=== PATIENT | male | born 1950 | race Caucasian/White ===

== ENCOUNTER 2020-03-06 09:52 | Inpatient (IN) | payer OTHER, MEDICARE ==
[2020-03-06] MEDS ORDERED: ACETAMINOPHEN TAB 325 MG TAB PO PRN (12:17)
[2020-03-06] MEDS ORDERED: MAGNESIUM HYDROXIDE 2,400 MG/10 ML CUP PO PRN (12:17)
[2020-03-06] MEDS ORDERED: NALOXONE 0.4 MG/ML 1 ML VIAL IV PRN (12:17)
[2020-03-06 12:58] LABS: ALT 31 U/L (4-49); AST 29 U/L (17-59); African American GFR (CKD) >90 (>60 ml/min/1.73 sqM); Albumin 3.9 g/dL (3.5-5.0); Alkaline Phosphatase 55 U/L (38-126); Blood Urea Nitrogen 23 mg/dL (9-20); Calcium 9.2 mg/dL (8.4-10.2); Chloride 85 mmol/L (98-107); Glucose 136 mg/dL (74-99); Magnesium 2.2 mg/dL (1.6-2.3); Non-African American GFR(CKD) >90 (>60 ml/min/1.73 sqM); Potassium 4.5 mmol/L (3.5-5.1); Sodium 132 mmol/L (137-145); Total Bilirubin 0.8 mg/dL (0.2-1.3); Total Protein 6.5 g/dL (6.3-8.2)
[2020-03-06 13:04] LABS: Anion Gap 2 mmol/L
[2020-03-06 13:06] LABS: Basophils % (A) 0 %; Eosinophils % (A) 0 %; HGB 15.5 gm/dL (13.0-17.5); Lymphocytes # (A) 0.6 k/uL (1.0-4.8); Lymphocytes % (A) 6 %; MCH 29.6 pg (25.0-35.0); MCV 95.4 fL (80.0-100.0); Mean Platelet Volume 7.3; Monocytes # (A) 0.7 k/uL (0-1.0); Monocytes % (A) 7 %; Neutrophils # (A) 8.4 k/uL (1.3-7.7); Neutrophils % (A) 86 %; Platelet Count 234 k/uL (150-450); RBC 5.25 m/uL (4.30-5.90); RDW 12.4 % (11.5-15.5); WBC 9.8 k/uL (3.8-10.6)
--- NOTE | 2020-03-06 13:10 | XR ---
EXAMINATION TYPE: XR chest 1V portable DATE OF EXAM: 03/06/2020 Comparison: None Clinical History: 69-year-old male SOB Findings: Leftward patient rotation alters normal cardiomediastinal contours. There is a curvilinear density pr ojecting over the left upper lung, possible external artifact or the margin of a bulla. This should b e correlated clinically. Some mild patchy retrocardiac density. Some volume loss at the left base. A trace left effusion is difficult to exclude. Impression: 1. A curvilinear density projecting at the left upper lung could represent external artifact or the m argin of a prominent bulla. 2. Retrocardiac and left basilar density, possible trace effusion with adjacent atelectasis and/or in filtrate.
[2020-03-06 13:11] LABS: Carbon Dioxide 45 mmol/L (22-30)
[2020-03-06] MEDS: AZITHROMYCIN 500 MG TAB PO SCH (13:40)
--- NOTE | 2020-03-06 13:45 | P.HPIM ---
History of Present Illness H&P Date: 03/06/20 Chief Complaint: Worsening shortness of breath and dyspnea This is a 69-year-old male with past medical history significant for severe COPD who was transferred from [facility] worsening dyspnea and hypercapnia. Patient was dyspneic upon my evaluation was only able to provide minimal history. He said that his shortness of breath is chronic and is been ongoing for over a year. With the past couple of days he is feeling more short of breath and was unable to ambulate. He denies any fevers or chills. No cough. No flulike symptoms. No recent contact. He was evaluated at [facility] and admitted for COPD exacerbation. This morning he appears to be more confused and blood gas was drawn showing a pH of 7.35 and PaCO2 of 84 patient was transferred to our hospital for escalation of care. Patient informed me that he would like to be a full code. He denies having any other medical problems. He denies taking any medications at home. He is not on oxygen at home. Review of Systems Review of system: 14 points review of systems were obtained and were negative except to what were mentioned in the HPI. Medications and Allergies Home Medications Medication Instructions Recorded Confirmed Type Albuterol Nebulized [Ventolin 2.5 mg INHALATION RT-Q4H PRN 03/06/20 03/06/20 History Nebulized] Albuterol Sulfate [Ventolin HFA] 2 puff PO Q4-6H PRN 03/06/20 03/06/20 History Aspirin EC [Ecotrin Low Dose] 81 mg PO DAILY 03/06/20 03/06/20 History Azithromycin [Zithromax] See Taper PO DAILY 03/06/20 03/06/20 History Beclomethasone Dipropionate [Qvar 1 inhalation PO RT-BID 03/06/20 03/06/20 History 40 mcg Redihaler] Fluticasone Nasal [place] [Flonase 1 spray NASAL DAILY PRN 03/06/20 03/06/20 History Nasal [place]] Multivitamins, Thera [Multivitamin 1 tab PO DAILY 03/06/20 03/06/20 History (formulary)] predniSONE [Deltasone] 40 mg PO DAILY 03/06/20 03/06/20 History Allergies Allergy/AdvReac Type Severity Reaction Status Date / Time No Known Allergies Allergy Verified 03/06/20 13:02 Physical Exam Vitals: Intake and Output 03/05/20 03/06/20 03/06/20 22:59 06:59 14:59 Other: Weight 74.642 kg General: The patient is awake and alert, in no distress Eye: there is normal conjunctiva bilaterally. Neck: The neck is supple, there is no JVD. Cardiovascular: Normal S1-S2, no S3-S4, no murmurs. Respiratory: Lungs are diminished with mild end expiratory wheezing Gastrointestinal: Abdomen is soft, nontender Musculoskeletal: There is no pedal edema. Neurological:. Speech is normal. Skin: Skin is warm and dry Results CBC & Chem 7: 03/06/20 12:36 03/06/20 12:36 Labs: Abnormal Lab Results - Last 24 Hours (Table) 03/06/20 03/06/20 Range/Units 12:36 12:36 Neutrophils # 8.4 H (1.3-7.7) k/uL Lymphocytes # 0.6 L (1.0-4.8) k/uL Sodium 132 L (137-145) mmol/L Chloride 85 L (98-107) mmol/L Carbon Dioxide 45 H* (22-30) mmol/L BUN 23 H (9-20) mg/dL Creatinine 0.61 L (0.66-1.25) mg/dL Glucose 136 H (74-99) mg/dL Assessment and Plan Assessment: 1. Acute COPD exacerbation: Continue Solu-Medrol 40 mg every 8 hours. DuoNeb's every 4 hours. Inhaled steroids twice daily. 2. Acute on chronic hypercapnic respiratory failure: Will start BiPAP at this time. Also pulmonology for further evaluation. 3. Acute hypoxic respiratory failure: Target O2 sat 88-92% 4. Left lower lobe density, may represent pneumonia versus atelectasis. We will continue antibiotic with IV ceftriaxone 1 g daily and azithromycin 500 mg daily. Obtain pro-calcitonin 5. Hyponatremia: Start IV fluid hydration with normal saline at 50 mg per hour 6. DVT prophylaxis with subcu Lovenox Today, I reviewed his medication list and lab work results. COVID-19 PCR negative. Other test sent from outside hospital pending. Repeat lab work in the morning.
[2020-03-06] MEDS: IPRATROPIUM-ALBUTEROL 3 ML NEB INHALATION SCH ×2 (16:16→19:53)
[2020-03-06] MEDS: methylPREDNISolone SOD SUCCI 40 MG/ML 1 ML VIAL IV SCH ×2 (16:35→23:08)
[2020-03-06 16:58] LABS: Glucose,Whole Blood 117 mg/dL (75-99)
[2020-03-06] MEDS: INSULIN ASPART (NovoLOG) 100 UNIT/ML VIAL SQ SCH ×2 (17:07→22:14)
--- NOTE | 2020-03-06 17:14 | P.CNPUL ---
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 Patient denied any fever, chills, denied any cough, or phlegm production, no sick contacts, no body aches, no nausea vomiting or diarrhea. Apparently he has been increasingly short of breath over the past couple of days and was unable to ambulate. He was evaluated a [facility] and he was being treated there for acute COPD exacerbation. Patient was found to be more confused and a blood gas was obtained showing PaCO2 of 84% and pH of 7.35. Chest x-ray was obtained once he arrived to [facility] showing curvilinear density projecting over the left upper lung with the possibility of external artifact or a margin of the [place], mild patchy retrocardiac density with some volume loss at the left base and a trace left pleural effusion was difficult to exclude. Patient was started on antibiotics in the form of azithromycin and Rocephin, Procrit Calcitrol level is pending, patient was placed on BiPAP for acute on chronic hypercapnic respiratory failure. His lab work was reviewed showing normal white count of 9.8, hemoglobin of 15.5, neutrophil level of 8.4, lymphopenia of 0.6, sodium 132, patient is receiving gentle IV hydration and plan and was sitting at a 50, chloride is 85, CO2 is 45, B1 is 23, creatinine is 0.61, LFTs were unremarkable, Covid 19 test was negative. Patient is on nebulized bronchodilators, and IV steroids. His BiPAP pressure is 15/5 with FiO2 of 40%, with a target pulse ox of 88-91% Review of Systems All systems: negative Constitutional: Denies chills, Denies fever Eyes: denies blurred vision, denies pain Ears, nose, mouth and throat: Denies headache, Denies sore throat Cardiovascular: Denies chest pain, Denies shortness of breath Respiratory: Reports dyspnea, Denies cough Gastrointestinal: Denies abdominal pain, Denies diarrhea, Denies nausea, Denies vomiting Musculoskeletal: Denies myalgias Integumentary: Denies pruritus, Denies rash Neurological: Reports change in mentation, Reports confusion, Denies numbness, Denies weakness Psychiatric: Denies anxiety, Denies depression Endocrine: Denies fatigue, Denies weight change Past Medical History - Past Family History Father Family Medical History: Coronary Artery Disease (CAD) Additional Family Medical History / Comment(s): of heart disease. Mother Family Medical History: CVA/TIA Additional Family Medical History / Comment(s): Lived into her 90's, now . Brother(s) Family Medical History: Coronary Artery Disease (CAD) Additional Family Medical History / Comment(s): of heart disease. Medications and Allergies Home Medications Medication Instructions Recorded Confirmed Type Albuterol Nebulized [Ventolin 2.5 mg INHALATION RT-Q4H PRN 03/06/20 03/06/20 History Nebulized] Albuterol Sulfate [Ventolin HFA] 2 puff PO Q4-6H PRN 03/06/20 03/06/20 History Aspirin EC [Ecotrin Low Dose] 81 mg PO DAILY 03/06/20 03/06/20 History Azithromycin [Zithromax] See Taper PO DAILY 03/06/20 03/06/20 History Beclomethasone Dipropionate [Qvar 1 inhalation PO RT-BID 03/06/20 03/06/20 History 40 mcg Redihaler] Fluticasone Nasal [place] [Flonase 1 spray NASAL DAILY PRN 03/06/20 03/06/20 History Nasal [place]] Multivitamins, Thera [Multivitamin 1 tab PO DAILY 03/06/20 03/06/20 History (formulary)] predniSONE [Deltasone] 40 mg PO DAILY 03/06/20 03/06/20 History Allergies Allergy/AdvReac Type Severity Reaction Status Date / Time No Known Allergies Allergy Verified 03/06/20 13:02 Physical Exam Vitals: Intake and Output 03/05/20 03/06/20 03/06/20 22:59 06:59 14:59 Other: Weight 74.642 kg GENERAL EXAM: Awake and alert, 69 -year-old male, on BiPAP support currently with pressures of 15/5 and FiO2 of 40% comfortable in no apparent distress. HEAD: Normocephalic/atraumatic. EYES: Normal reaction of pupils, equal size. Conjunctiva pink, sclera white. NOSE: Clear with pink turbinates. THROAT: No erythema or exudates. NECK: No masses, no JVD, no thyroid enlargement, no adenopathy. CHEST: No chest wall deformity. Symmetrical expansion. LUNGS: Equal air entry with diminished breath sounds and diffuse end expiratory wheezing CVS: Regular rate and rhythm, normal S1 and S2, no gallops, no murmurs, no rubs ABDOMEN: Soft, nontender. No hepatosplenomegaly, normal bowel sounds, no guarding or rigidity. EXTREMITIES: No clubbing, no edema, no cyanosis, 2+ pulses and upper and lower extremities. MUSCULOSKELETAL: Muscle strength and tone normal. SPINE: No scoliosis or deformity SKIN: No rashes CENTRAL NERVOUS SYSTEM: Alert and oriented -3. No focal deficits, tone is normal in all 4 extremities. PSYCHIATRIC: Alert and oriented -3. Appropriate affect. Intact judgment and insight. Results - Laboratory Findings CBC and BMP: 03/06/20 12:36 03/06/20 12:36 Abnormal lab findings: Abnormal Labs 03/06/20 03/06/20 12:36 12:36 Neutrophils # 8.4 H Lymphocytes # 0.6 L Sodium 132 L Chloride 85 L Carbon Dioxide 45 H* BUN 23 H Creatinine 0.61 L Glucose 136 H - Diagnostic Findings Chest x-ray: report reviewed, image reviewed Assessment and Plan Plan: Assessment: #1. Acute on chronic hypercapnic respiratory failure related to exacerbation of severe COPD, COVID 19 has been ruled out #2. Advanced COPD, with chronic hypercapnic respiratory failure on home BiPAP, not oxygen dependent at baseline, exact pulmonary function is unknown #3. Possibility of left lower lobe pneumonia, patient is covered with combination of Rocephin and azithromycin for possibility of community acquired pneumonia #4. Possible prominent bulla in the left upper lung seen on the chest x-ray on 03/06/2020 #5. Chronic dyspnea related to advanced COPD #6. Mild hyponatremia, possibly related to dehydration #7. Possible left diaphragmatic weakness could be related to previous history of bowel surgery #8. History of diverticulitis, with history of bowel resection Plan: Continue current antibiotic coverage, continue BiPAP support tonight, patient is obtaining good volumes, and his mentation has improved keep pulse ox between 88-90%. Continue IV steroids and nebulized bronchodilators. Covid 19 infection has been ruled out. Will move the patient to the intensive care unit should his condition worsen. We'll continue to closely follow and make further recommendations based on the clinical course I performed a history & physical examination of the patient and discussed their management with my nurse practitioner, Sapna Friedman. I reviewed the nurse practitioner's note and agree with the documented findings and plan of care. Lung sounds are positive for diffuse wheezes throughout the lung monsivais. The findings and the impression was discussed with the patient. I attest to the documentation by the nurse practitioner. Time with Patient: Greater than 30
[2020-03-06] MEDS: SODIUM CHLORIDE 0.9% 1,000 ML IV SCH (18:18)
[2020-03-06 21:29] LABS: Glucose,Whole Blood 131 mg/dL (75-99)
[2020-03-07] MEDS: IPRATROPIUM-ALBUTEROL 3 ML NEB INHALATION SCH ×2 (00:36→05:08)
[2020-03-07 06:04] LABS: Glucose,Whole Blood 135 mg/dL (75-99)
[2020-03-07] MEDS: INSULIN ASPART (NovoLOG) 100 UNIT/ML VIAL SQ SCH ×4 (06:09→21:35)
[2020-03-07 06:51] LABS: Basophils % (A) 0 %; Eosinophils # (A) 0.1 k/uL (0-0.7); Eosinophils % (A) 1 %; HCT 47.2 % (39.0-53.0); HGB 14.7 gm/dL (13.0-17.5); Lymphocytes # (A) 0.9 k/uL (1.0-4.8); Lymphocytes % (A) 9 %; MCHC 31.1 g/dL (31.0-37.0); MCV 96.3 fL (80.0-100.0); Mean Platelet Volume 7.3; Monocytes # (A) 0.5 k/uL (0-1.0); Monocytes % (A) 5 %; Neutrophils % (A) 84 %; Platelet Count 231 k/uL (150-450); RDW 12.2 % (11.5-15.5); WBC 9.5 k/uL (3.8-10.6)
[2020-03-07 07:03] LABS: African American GFR (CKD) >90 (>60 ml/min/1.73 sqM); Blood Urea Nitrogen 25 mg/dL (9-20); Calcium 9.2 mg/dL (8.4-10.2); Chloride 83 mmol/L (98-107); Glucose 141 mg/dL (74-99); Non-African American GFR(CKD) >90 (>60 ml/min/1.73 sqM); Sodium 131 mmol/L (137-145)
[2020-03-07 07:10] LABS: Anion Gap 7 mmol/L
[2020-03-07 07:23] LABS: Carbon Dioxide 41 mmol/L (22-30)
[2020-03-07] MEDS: ALBUTEROL HFA INHALER INHALATION SCH ×4 (08:14→20:36)
[2020-03-07] MEDS: TIOTROPIUM 18 MCG/PUFF INHALER INHALATION SCH (08:14)
[2020-03-07] MEDS: AZITHROMYCIN 500 MG TAB PO SCH (08:35)
[2020-03-07] MEDS: ENOXAPARIN 40 MG/0.4 ML SYRINGE SQ SCH (08:35)
[2020-03-07] MEDS: SODIUM CHLORIDE 0.9% 1,000 ML IV SCH ×2 (08:35→10:28)
[2020-03-07] MEDS: methylPREDNISolone SOD SUCCI 40 MG/ML 1 ML VIAL IV SCH ×2 (08:35→16:51)
[2020-03-07 11:48] LABS: Glucose,Whole Blood 133 mg/dL (75-99)
[2020-03-07 14:01] VITALS: BMI 23.1
--- NOTE | 2020-03-07 14:29 | P.PN ---
Subjective Progress Note Date: 03/07/20 Principal diagnosis: Acute on chronic hypercapnic respiratory failure secondary to an exacerbation of COPD. 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 Patient denied any fever, chills, denied any cough, or phlegm production, no sick contacts, no body aches, no nausea vomiting or diarrhea. Apparently he has been increasingly short of breath over the past couple of days and was unable to ambulate. He was evaluated a [facility] and he was being treated there for acute COPD exacerbation. Patient was found to be more confused and a blood gas was obtained showing PaCO2 of 84% and pH of 7.35. Chest x-ray was obtained once he arrived to [facility] showing curvilinear density projecting over the left upper lung with the possibility of external artifact or a margin of the [place], mild patchy retrocardiac density with some volume loss at the left base and a trace left pleural effusion was difficult to exclude. Patient was started on antibiotics in the form of azithromycin and Rocephin, Procrit Calcitrol level is pending, patient was placed on BiPAP for acute on chronic hypercapnic respiratory failure. His lab work was reviewed showing normal white count of 9.8, hemoglobin of 15.5, neutrophil level of 8.4, lymphopenia of 0.6, sodium 132, patient is receiving gentle IV hydration and plan and was sitting at a 50, chloride is 85, CO2 is 45, B1 is 23, creatinine is 0.61, LFTs were unremarkable, Covid 19 test was negative. Patient is on nebulized bronchodilators, and IV steroids. His BiPAP pressure is 15/5 with FiO2 of 40%, with a target pulse ox of 88-91% The patient is seen today 03/07/2020 in follow-up in the selective care unit. He is currently sitting up in a chair at the bedside. Awake and alert in no acute distress. Breathing a bit easier today compared to yesterday. He is maintaining O2 saturations in the mid 90s on 3 L/m per nasal cannula. He is afebrile. White count 9.5. Hemoglobin 14.7. Sodium 131. Bicarb 41. Creatinine 0.60. He is maintained on ceftriaxone and azithromycin along with bronchodilators, IV Solu-Medrol. He is utilizing the BiPAP during the evening and throughout the day while napping. Settings 15/5 on 40% FiO2 Objective - Vital Signs Vital signs: Vital Signs Temp 98.2 F 03/07/20 08:45 Pulse 97 03/07/20 08:54 Resp 26 H 03/07/20 08:54 BP 134/85 03/07/20 08:45 Pulse Ox 95 03/07/20 08:45 Intake & Output 03/06/20 03/07/20 03/07/20 18:59 06:59 18:59 Intake Total 150 0 360 Output Total 375 250 Balance 150 -375 110 Weight 74.642 kg 77.5 kg 77.5 kg Intake: Intake, IV Titration 150 Amount Sodium Chloride 0.9% 1, 100 000 ml @ 50 mls/hr IV . Q20H [facility] Rx#:[id number] cefTRIAXone 1 gm In 50 Sodium Chloride 0.9% 50 ml @ 100 mls/hr IVPB Q24HR [facility] Rx#:[id number] Oral 0 360 Output: Urine 375 250 Other: # Voids 0 0 1 # Bowel Movements 0 - Exam GENERAL EXAM: Awake and alert, 69-year-old gentleman, on 3 L/m per nasal ca nnula and alternating with BiPAP support with pressures of 15/5 and FiO2 of 40% comfortable in no apparent distress. HEAD: Normocephalic/atraumatic. EYES: Normal reaction of pupils, equal size. Conjunctiva pink, sclera white. NOSE: Clear with pink turbinates. THROAT: No erythema or exudates. NECK: No masses, no JVD, no thyroid enlargement, no adenopathy. CHEST: No chest wall deformity. Symmetrical expansion. LUNGS: Equal air entry with diminished breath sounds and diffuse end expiratory wheezing CVS: Regular rate and rhythm, normal S1 and S2, no gallops, no murmurs, no rubs ABDOMEN: Soft, nontender. No hepatosplenomegaly, normal bowel sounds, no guarding or rigidity. EXTREMITIES: No clubbing, no edema, no cyanosis, 2+ pulses and upper and lower extremities. MUSCULOSKELETAL: Muscle strength and tone normal. SPINE: No scoliosis or deformity SKIN: No rashes CENTRAL NERVOUS SYSTEM: Alert and oriented -3. No focal deficits, tone is normal in all 4 extremities. PSYCHIATRIC: Alert and oriented -3. Appropriate affect. Intact judgment and insight. - Labs CBC & Chem 7: 03/07/20 06:30 03/07/20 06:30 Labs: Abnormal Lab Results - Last 24 Hours (Table) 03/06/20 03/06/20 03/07/20 Range/Units 16:56 21:28 06:03 Neutrophils # (1.3-7.7) k/uL Lymphocytes # (1.0-4.8) k/uL Sodium (137-145) mmol/L Chloride (98-107) mmol/L Carbon Dioxide (22-30) mmol/L BUN (9-20) mg/dL Creatinine (0.66-1.25) mg/dL Glucose (74-99) mg/dL POC Glucose (mg/dL) 117 H 131 H 135 H (75-99) mg/dL 03/07/20 03/07/20 03/07/20 Range/Units 06:30 06:30 11:47 Neutrophils # 8.0 H (1.3-7.7) k/uL Lymphocytes # 0.9 L (1.0-4.8) k/uL Sodium 131 L (137-145) mmol/L Chloride 83 L (98-107) mmol/L Carbon Dioxide 41 H* (22-30) mmol/L BUN 25 H (9-20) mg/dL Creatinine 0.60 L (0.66-1.25) mg/dL Glucose 141 H (74-99) mg/dL POC Glucose (mg/dL) 133 H (75-99) mg/dL Assessment and Plan Assessment: #1. Acute on chronic hypercapnic respiratory failure related to exacerbation of severe COPD, COVID 19 has been ruled out #2. Advanced COPD, with chronic hypercapnic respiratory failure on home BiPAP, not oxygen dependent at baseline, exact pulmonary function is unknown #3. Possibility of left lower lobe pneumonia, patient is covered with combination of Rocephin and azithromycin for possibility of community acquired pneumonia #4. Possible prominent bulla in the left upper lung seen on the chest x-ray on 03/06/2020 #5. Chronic dyspnea related to advanced COPD #6. Mild hyponatremia, possibly related to dehydration #7. Possible left diaphragmatic weakness could be related to previous history of bowel surgery #8. History of diverticulitis, with history of bowel resection Plan: The patient was seen and evaluated by Dr. Knox He is improved today compared to yesterday Continue BiPAP support during the evening and throughout the day as needed Continue bronchodilators, IV Solu-Medrol Remains on empiric antibiotics We'll continue to follow I, the cosigning physician, performed a history & physical examination of the patient. Lungs sounds with bilateral end expiratory wheeze, diminished. Maintaining good O2 saturations in the 90s on 3 L/m per nasal cannula, alternating with BiPAP 15/5 on 40% FiO2. I discussed the assessment and plan of care with my nurse practitioner, Lory Mills. I attest to the above note as dictated by her.
[2020-03-07 14:38] LABS: Hemoglobin A1C 6.1 % (4.0-6.0)
[2020-03-07 16:49] LABS: Glucose,Whole Blood 130 mg/dL (75-99)
[2020-03-07] MEDS ORDERED: POLYETHYLENE GLYCOL 3350 17 GM POWD.PACK PO STA (20:08)
[2020-03-07] MEDS ORDERED: FLUTICASONE 50MCG/SPRAY NASAL 16GM NASAL PRN (20:13)
[2020-03-07] MEDS ORDERED: ALBUTEROL HFA INHALER INHALATION PRN (20:13)
--- NOTE | 2020-03-07 20:14 | P.PN ---
Subjective Progress Note Date: 03/07/20 Principal diagnosis: shortness of breath Patient is a 69-year-old male with COPD, chronic hypoxic respiratory failure, pneumonia, sleep apnea, and multiple other comorbid conditions who was transferred from [facility] secondary to worsening dyspnea on hyperca pnia. He was diagnosed with acute exacerbation of COPD and acute on chronic hypoxic hypercapnic respiratory failure. He was started on antibiotics, steroids, and BiPAP. Pulmonary was consulted. On the morning of 03/07 he continued to require BiPAP therapy. Patient seen and examined at bedside. He continues to wear BiPAP. He complains of some constipation. Breathing is slightly improved from yesterday. Continues to have some cough. No nausea or vomiting. Objective - Vital Signs Vital signs: Vital Signs Temp 98.2 F 03/07/20 15:17 Pulse 95 03/07/20 15:17 Resp 26 H 03/07/20 15:17 BP 134/79 03/07/20 15:17 Pulse Ox 98 03/07/20 15:17 Intake & Output 03/07/20 03/07/20 03/08/20 06:59 18:59 06:59 Intake Total 0 480 Output Total 375 650 Balance -375 -170 Weight 77.5 kg 77.5 kg Intake: Oral 0 480 Output: Urine 375 650 Other: Voiding Method Toilet Urinal # Voids 0 1 - Exam General: Ill appearing, distress, appears at stated age Derm: warm, dry Head: atraumatic, normocephalic, symmetric Eyes: EOMI, no lid lag, anicteric sclera Mouth: no lip lesion, mucus membranes moist Cardiovascular: S1S2 reg, no murmur, positive posterior tibial pulse bilateral, Lungs: Breath sounds bilateral , no accessory muscle use, 2 word conversational dyspnea, BiPAP and placed Abdominal: soft, nontender to palpation, no guarding, no appreciable organomegaly Ext: no gross muscle atrophy, no edema, no contractures Neuro: CN II-XI grossly intact, no focal neuro deficits Psych: Alert, oriented, appropriate affect - Labs CBC & Chem 7: 03/07/20 06:30 03/07/20 06:30 Labs: Abnormal Lab Results - Last 24 Hours (Table) 03/06/20 03/07/20 03/07/20 Range/Units 21:28 06:03 06:30 Neutrophils # (1.3-7.7) k/uL Lymphocytes # (1.0-4.8) k/uL Sodium (137-145) mmol/L Chloride (98-107) mmol/L Carbon Dioxide (22-30) mmol/L BUN (9-20) mg/dL Creatinine (0.66-1.25) mg/dL Glucose (74-99) mg/dL POC Glucose (mg/dL) 131 H 135 H (75-99) mg/dL Hemoglobin A1c 6.1 H (4.0-6.0) % Procalcitonin (0.02-0.09) ng/mL 03/07/20 03/07/20 03/07/20 Range/Units 06:30 06:30 06:30 Neutrophils # 8.0 H (1.3-7.7) k/uL Lymphocytes # 0.9 L (1.0-4.8) k/uL Sodium 131 L (137-145) mmol/L Chloride 83 L (98-107) mmol/L Carbon Dioxide 41 H* (22-30) mmol/L BUN 25 H (9-20) mg/dL Creatinine 0.60 L (0.66-1.25) mg/dL Glucose 141 H (74-99) mg/dL POC Glucose (mg/dL) (75-99) mg/dL Hemoglobin A1c (4.0-6.0) % Procalcitonin 0.10 H (0.02-0.09) ng/mL 03/07/20 03/07/20 Range/Units 11:47 16:47 Neutrophils # (1.3-7.7) k/uL Lymphocytes # (1.0-4.8) k/uL Sodium (137-145) mmol/L Chloride (98-107) mmol/L Carbon Dioxide (22-30) mmol/L BUN (9-20) mg/dL Creatinine (0.66-1.25) mg/dL Glucose (74-99) mg/dL POC Glucose (mg/dL) 133 H 130 H (75-99) mg/dL Hemoglobin A1c (4.0-6.0) % Procalcitonin (0.02-0.09) ng/mL Assessment and Plan Assessment: Acute exacerbation of COPD due to left-sided pneumonia with acute on chronic hypercapnic respiratory failure -Steroids, bronchodilators, pulmonary hygiene - Zithromax and Rocephin for pneumonia -Continue with BiPAP support -Follow chest x-ray until clear -Pulmonary recommendations -Covid-19 negative Hyponatremia, mild -Likely secondary to dehydration -IV fluids -Repeat BMP in a.m. Chronic: Heart murmur Diaphragmatic paralysis Prior CVA DVT prophylaxis: Lovenox Discussed with: patient, nursing, Dr. Knox Anticipated discharge: 1-[address]: home A total of 35 minutes was spent on the care of this complex patient more than 50% of the time was spent in counseling and care coordination.
[2020-03-07 20:29] LABS: Glucose,Whole Blood 151 mg/dL (75-99)
[2020-03-08] MEDS: methylPREDNISolone SOD SUCCI 40 MG/ML 1 ML VIAL IV SCH ×4 (00:34→23:47)
[2020-03-08] MEDS: ALBUTEROL HFA INHALER INHALATION SCH ×7 (00:55→23:29)
[2020-03-08 06:32] LABS: Glucose,Whole Blood 138 mg/dL (75-99)
[2020-03-08 06:43] LABS: Basophils % (A) 0 %; Eosinophils % (A) 0 %; HCT 43.8 % (39.0-53.0); HGB 13.5 gm/dL (13.0-17.5); Lymphocytes # (A) 0.5 k/uL (1.0-4.8); Lymphocytes % (A) 5 %; MCH 29.4 pg (25.0-35.0); MCHC 30.8 g/dL (31.0-37.0); MCV 95.7 fL (80.0-100.0); Mean Platelet Volume 7.5; Monocytes # (A) 0.4 k/uL (0-1.0); Monocytes % (A) 4 %; Neutrophils # (A) 7.5 k/uL (1.3-7.7); Neutrophils % (A) 89 %; Platelet Count 200 k/uL (150-450); RBC 4.58 m/uL (4.30-5.90); RDW 12.4 % (11.5-15.5); WBC 8.3 k/uL (3.8-10.6)
[2020-03-08] MEDS: INSULIN ASPART (NovoLOG) 100 UNIT/ML VIAL SQ SCH ×4 (06:56→21:19)
[2020-03-08 07:01] LABS: African American GFR (CKD) >90 (>60 ml/min/1.73 sqM); Anion Gap 4 mmol/L; Blood Urea Nitrogen 23 mg/dL (9-20); Calcium 8.7 mg/dL (8.4-10.2); Carbon Dioxide 39 mmol/L (22-30); Chloride 88 mmol/L (98-107); Cholesterol 137 mg/dL (<200); Glucose 135 mg/dL (74-99); HDL Cholesterol 72 mg/dL (40-60); LDL Cholesterol,Calculated 53 mg/dL (0-99); Non-African American GFR(CKD) >90 (>60 ml/min/1.73 sqM); Phosphorus 3.8 mg/dL (2.5-4.5); Potassium 4.7 mmol/L (3.5-5.1); Sodium 131 mmol/L (137-145); Triglycerides 58 mg/dL (<150)
[2020-03-08] MEDS: SYMBICORT 160-4.5 MCG INHALER INHALATION SCH ×2 (08:04→19:36)
[2020-03-08] MEDS: TIOTROPIUM 18 MCG/PUFF INHALER INHALATION SCH (08:04)
[2020-03-08] MEDS: AZITHROMYCIN 500 MG TAB PO SCH (08:19)
[2020-03-08] MEDS: ASPIRIN 81 MG PO SCH (08:19)
[2020-03-08] MEDS: ENOXAPARIN 40 MG/0.4 ML SYRINGE SQ SCH (08:19)
[2020-03-08] MEDS: SODIUM CHLORIDE 0.9% 1,000 ML IV SCH (08:27)
[2020-03-08 12:11] LABS: Glucose,Whole Blood 142 mg/dL (75-99)
--- NOTE | 2020-03-08 13:10 | P.PN ---
Subjective Progress Note Date: 03/08/20 Principal diagnosis: Acute on chronic hypercapnic respiratory failure secondary to an exacerbation of COPD. 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 Patient denied any fever, chills, denied any cough, or phlegm production, no sick contacts, no body aches, no nausea vomiting or diarrhea. Apparently he has been increasingly short of breath over the past couple of days and was unable to ambulate. He was evaluated a [facility] and he was being treated there for acute COPD exacerbation. Patient was found to be more confused and a blood gas was obtained showing PaCO2 of 84% and pH of 7.35. Chest x-ray was obtained once he arrived to [facility] showing curvilinear density projecting over the left upper lung with the possibility of external artifact or a margin of the [place], mild patchy retrocardiac density with some volume loss at the left base and a trace left pleural effusion was difficult to exclude. Patient was started on antibiotics in the form of azithromycin and Rocephin, Procrit Calcitrol level is pending, patient was placed on BiPAP for acute on chronic hypercapnic respiratory failure. His lab work was reviewed showing normal white count of 9.8, hemoglobin of 15.5, neutrophil level of 8.4, lymphopenia of 0.6, sodium 132, patient is receiving gentle IV hydration and plan and was sitting at a 50, chloride is 85, CO2 is 45, B1 is 23, creatinine is 0.61, LFTs were unremarkable, Covid 19 test was negative. Patient is on nebulized bronchodilators, and IV steroids. His BiPAP pressure is 15/5 with FiO2 of 40%, with a target pulse ox of 88-91% The patient is seen today 03/07/2020 in follow-up in the selective care unit. He is currently sitting up in a chair at the bedside. Awake and alert in no acute distress. Breathing a bit easier today compared to yesterday. He is maintaining O2 saturations in the mid 90s on 3 L/m per nasal cannula. He is afebrile. White count 9.5. Hemoglobin 14.7. Sodium 131. Bicarb 41. Creatinine 0.60. He is maintained on ceftriaxone and azithromycin along with bronchodilators, IV Solu-Medrol. He is utilizing the BiPAP during the evening and throughout the day while napping. Settings 15/5 on 40% FiO2. The patient is seen today 03/08/2020 in follow-up on the selective care unit. He is currently resting in bed. A bit more awake and alert today. He is currently on BiPAP 15/5 and 40% FiO2. Alternating with oxygen at 3 L/m per nasal cannula. White count 8.3. Hemoglobin 13.5. Sodium 131. Potassium 4.7. Creatinine 0.56. He remains on Symbicort, Spiriva, albuterol. He is on IV Solu-Medrol. Lovenox for DVT prophylaxis. Antibiotics in the form of ceftriaxone and azithromycin. Objective - Vital Signs Vital signs: Vital Signs Temp 97.6 F 03/08/20 08:00 Pulse 93 03/08/20 11:00 Resp 20 03/08/20 11:00 BP 125/77 03/08/20 11:00 Pulse Ox 94 L 03/08/20 11:00 Intake & Output 03/07/20 03/08/20 03/08/20 18:59 06:59 18:59 Intake Total 480 400 480 Output Total 650 50 400 Balance -170 350 80 Weight 77.5 kg 82 kg Intake: Intake, IV Titration 400 Amount Sodium Chloride 0.9% 1, 400 000 ml @ 50 mls/hr IV . Q20H [facility] Rx#:[id number] Oral 480 480 Output: Urine 650 50 400 Other: Voiding Method Toilet Toilet Toilet Urinal Urinal Urinal # Voids 1 # Bowel Movements 1 - Exam GENERAL EXAM: Awake and alert, 69-year-old gentleman, on 3 L/m per nasal cannula and alternating with BiPAP support with pressures of 15/5 and FiO2 of 40 % comfortable in no apparent distress. HEAD: Normocephalic/atraumatic. EYES: Normal reaction of pupils, equal size. Conjunctiva pink, sclera white. NOSE: Clear with pink turbinates. THROAT: No erythema or exudates. NECK: No masses, no JVD, no thyroid enlargement, no adenopathy. CHEST: No chest wall deformity. Symmetrical expansion. LUNGS: Equal air entry with diminished breath sounds and bilateral end expiratory wheezing CVS: Regular rate and rhythm, normal S1 and S2, no gallops, no murmurs, no rubs ABDOMEN: Soft, nontender. No hepatosplenomegaly, normal bowel sounds, no guarding or rigidity. EXTREMITIES: No clubbing, no edema, no cyanosis, 2+ pulses and upper and lower extremities. MUSCULOSKELETAL: Muscle strength and tone normal. SPINE: No scoliosis or deformity SKIN: No rashes CENTRAL NERVOUS SYSTEM: No focal deficits, tone is normal in all 4 extremities. PSYCHIATRIC: Alert and oriented -3. Appropriate affect. Intact judgment and insight. - Labs CBC & Chem 7: 03/08/20 05:45 03/08/20 05:45 Labs: Abnormal Lab Results - Last 24 Hours (Table) 03/07/20 03/07/20 03/07/20 Range/Units 06:30 06:30 16:47 MCHC (31.0-37.0) g/dL Lymphocytes # (1.0-4.8) k/uL Sodium (137-145) mmol/L Chloride (98-107) mmol/L Carbon Dioxide (22-30) mmol/L BUN (9-20) mg/dL Creatinine (0.66-1.25) mg/dL Glucose (74-99) mg/dL POC Glucose (mg/dL) 130 H (75-99) mg/dL Hemoglobin A1c 6.1 H (4.0-6.0) % HDL Cholesterol (40-60) mg/dL Procalcitonin 0.10 H (0.02-0.09) ng/mL 03/07/20 03/08/20 03/08/20 Range/Units 20:27 05:45 05:45 MCHC 30.8 L (31.0-37.0) g/dL Lymphocytes # 0.5 L (1.0-4.8) k/uL Sodium 131 L (137-145) mmol/L Chloride 88 L (98-107) mmol/L Carbon Dioxide 39 H (22-30) mmol/L BUN 23 H (9-20) mg/dL Creatinine 0.56 L (0.66-1.25) mg/dL Glucose 135 H (74-99) mg/dL POC Glucose (mg/dL) 151 H (75-99) mg/dL Hemoglobin A1c (4.0-6.0) % HDL Cholesterol 72 H (40-60) mg/dL Procalcitonin (0.02-0.09) ng/mL 03/08/20 03/08/20 Range/Units 06:31 12:08 MCHC (31.0-37.0) g/dL Lymphocytes # (1.0-4.8) k/uL Sodium (137-145) mmol/L Chloride (98-107) mmol/L Carbon Dioxide (22-30) mmol/L BUN (9-20) mg/dL Creatinine (0.66-1.25) mg/dL Glucose (74-99) mg/dL POC Glucose (mg/dL) 138 H 142 H (75-99) mg/dL Hemoglobin A1c (4.0-6.0) % HDL Cholesterol (40-60) mg/dL Procalcitonin (0.02-0.09) ng/mL Assessment and Plan Assessment: #1. Acute on chronic hypercapnic respiratory failure related to exacerbation of severe COPD, COVID 19 has been ruled out #2. Advanced COPD, with chronic hypercapnic respiratory failure on home BiPAP, not oxygen dependent at baseline, exact pulmonary function is unknown #3. Possibility of left lower lobe pneumonia, patient is covered with combination of Rocephin and azithromycin for possibility of community acquired pneumonia #4. Possible prominent bulla in the left upper lung seen on the chest x-ray on 03/06/2020 #5. Chronic dyspnea related to advanced COPD #6. Mild hyponatremia, possibly related to dehydration #7. Possible left diaphragmatic weakness could be related to previous history o f bowel surgery #8. History of diverticulitis, with history of bowel resection Plan: The patient was seen and evaluated by Dr. Knox Continue BiPAP support during the evening and throughout the day as needed Continue Symbicort, Spiriva, albuterol, IV Solu-Medrol Remains on cefepime and azithromycin Repeat a chest x-ray in the a.m. We'll continue to follow I, the cosigning physician, performed a history & physical examination of the patient. Lungs sounds with bilateral end expiratory wheeze, diminished. Maintaining good O2 saturations in the 90s on 3 L/m per nasal cannula, alternating with BiPAP 15/5 on 40% FiO2. I discussed the assessment and plan of care with my nurse practitioner, Lory Mills. I attest to the above note as dictated by her.
[2020-03-08 16:38] LABS: Glucose,Whole Blood 90 mg/dL (75-99)
--- NOTE | 2020-03-08 18:15 | P.PN ---
Subjective Progress Note Date: 03/08/20 (delayed charting seen at 1120) Principal diagnosis: shortness of breath Patient is a 69-year-old male with COPD, chronic hypoxic respiratory failure, pneumonia, sleep apnea, and multiple other comorbid conditions who was transferred from [facility] secondary to worsening dyspnea on hypercapnia. He was diagnosed with acute exacerbation of COPD and acute on chronic hypoxic hypercapnic respiratory failure. He was started on antibiotics, steroids, and BiPAP. Pulmonary was consulted. On the morning of 03/07 he continued to require BiPAP therapy. He had slow progress. Patient seen and examined at bedside. He continues to be on BiPAP. He reports that he took BiPAP off to eat breakfast but he got significantly short of breath with difficult. He denies any nausea, vomiting, or diarrhea. He reports feeling overall better than yesterday. Objective - Vital Signs Vital signs: Vital Signs Temp 98.7 F 03/08/20 15:00 Pulse 92 03/08/20 15:00 Resp 18 03/08/20 15:00 BP 133/84 03/08/20 15:00 Pulse Ox 95 03/08/20 15:00 Intake & Output 03/07/20 03/08/20 03/08/20 18:59 06:59 18:59 Intake Total 480 400 910 Output Total 648 90 2083 Balance -170 350 -115 Weight 77.5 kg 82 kg Intake: Intake, IV Titration 400 190 Amount Sodium Chloride 0.9% 1, 400 140 000 ml @ 50 mls/hr IV . Q20H [facility] Rx#:[id number] cefTRIAXone 1 gm In 50 Sodium Chloride 0.9% 50 ml @ 100 mls/hr IVPB Q24HR [facility] Rx#:[id number] Oral 480 720 Output: Urine 168 15 3769 Other: Voiding Method Toilet Toilet Toilet Urinal Urinal Urinal # Voids 1 1 # Bowel Movements 1 - Exam General: Ill appearing, distress, appears at stated age Derm: warm, dry Head: atraumatic, normocephalic, symmetric Eyes: EOMI, no lid lag, anicteric sclera Mouth: no lip lesion, mucus membranes moist Cardiovascular: S1S2 reg, no murmur, positive posterior tibial pulse bilateral, Lungs: Course Breath sounds bilateral , no accessory muscle use, 2 word conversational dyspnea, BiPAP and placed Abdominal: soft, nontender to palpation, no guarding, no appreciable organomegaly Ext: no gross muscle atrophy, no edema, no contractures Neuro: CN II-XI grossly intact, no focal neuro deficits Psych: Alert, oriented, appropriate affect - Labs CBC & Chem 7: 03/08/20 05:45 03/08/20 05:45 Labs: Abnormal Lab Results - Last 24 Hours (Table) 03/07/20 03/07/20 03/08/20 Range/Units 06:30 20:27 05:45 MCHC 30.8 L (31.0-37.0) g/dL Lymphocytes # 0.5 L (1.0-4.8) k/uL Sodium (137-145) mmol/L Chloride (98-107) mmol/L Carbon Dioxide (22-30) mmol/L BUN (9-20) mg/dL Creatinine (0.66-1.25) mg/dL Glucose (74-99) mg/dL POC Glucose (mg/dL) 151 H (75-99) mg/dL HDL Cholesterol (40-60) mg/dL Procalcitonin 0.10 H (0.02-0.09) ng/mL 03/08/20 03/08/20 03/08/20 Range/Units 05:45 06:31 12:08 MCHC (31.0-37.0) g/dL Lymphocytes # (1.0-4.8) k/uL Sodium 131 L (137-145) mmol/L Chloride 88 L (98-107) mmol/L Carbon Dioxide 39 H (22-30) mmol/L BUN 23 H (9-20) mg/dL Creatinine 0.56 L (0.66-1.25) mg/dL Glucose 135 H (74-99) mg/dL POC Glucose (mg/dL) 138 H 142 H (75-99) mg/dL HDL Cholesterol 72 H (40-60) mg/dL Procalcitonin (0.02-0.09) ng/mL Assessment and Plan Assessment: Acute exacerbation of COPD due to left-sided pneumonia with acute on chronic hypercapnic respiratory failure -Steroids, bronchodilators, pulmonary hygiene - Zithromax and Rocephin for pneumonia -Continue with BiPAP support as needed -Follow chest x-ray until clear -Pulmonary recommendations -Covid-19 negative Hyponatremia, mild, stable -Likely secondary to dehydration -IV fluids -Repeat BMP in a.m. Constipation - miralax - improving Chronic: Heart murmur Diaphragmatic paralysis Prior CVA DVT prophylaxis: Lovenox Discussed with: patient, nursing, Dr. Knox Anticipated discharge: 2-[address]: home A total of 25 minutes was spent on the care of this complex patient more than 50% of the time was spent in counseling and care coordination.
[2020-03-08 20:30] LABS: Glucose,Whole Blood 154 mg/dL (75-99)
[2020-03-09] MEDS: ALBUTEROL HFA INHALER INHALATION SCH ×6 (03:18→22:56)
[2020-03-09 06:13] LABS: Glucose,Whole Blood 130 mg/dL (75-99)
[2020-03-09] MEDS: INSULIN ASPART (NovoLOG) 100 UNIT/ML VIAL SQ SCH ×4 (06:16→20:29)
[2020-03-09 06:56] LABS: Basophils % (A) 0 %; Eosinophils % (A) 1 %; HCT 41.3 % (39.0-53.0); HGB 13.7 gm/dL (13.0-17.5); Lymphocytes # (A) 0.5 k/uL (1.0-4.8); Lymphocytes % (A) 8 %; MCH 30.3 pg (25.0-35.0); MCHC 33.1 g/dL (31.0-37.0); MCV 91.5 fL (80.0-100.0); Mean Platelet Volume 7.6; Monocytes # (A) 0.3 k/uL (0-1.0); Monocytes % (A) 4 %; Neutrophils # (A) 5.5 k/uL (1.3-7.7); Neutrophils % (A) 87 %; Platelet Count 179 k/uL (150-450); RBC 4.52 m/uL (4.30-5.90); RDW 12.4 % (11.5-15.5); WBC 6.3 k/uL (3.8-10.6)
[2020-03-09 07:10] LABS: African American GFR (CKD) >90 (>60 ml/min/1.73 sqM); Blood Urea Nitrogen 25 mg/dL (9-20); Calcium 8.5 mg/dL (8.4-10.2); Chloride 90 mmol/L (98-107); Glucose 136 mg/dL (74-99); Non-African American GFR(CKD) >90 (>60 ml/min/1.73 sqM); Potassium 4.9 mmol/L (3.5-5.1); Sodium 133 mmol/L (137-145)
[2020-03-09 07:20] LABS: Anion Gap 6 mmol/L; Carbon Dioxide 37 mmol/L (22-30)
[2020-03-09] MEDS: SYMBICORT 160-4.5 MCG INHALER INHALATION SCH ×2 (08:11→19:37)
[2020-03-09] MEDS: TIOTROPIUM 18 MCG/PUFF INHALER INHALATION SCH (08:12)
[2020-03-09] MEDS: AZITHROMYCIN 500 MG TAB PO SCH (09:11)
[2020-03-09] MEDS: methylPREDNISolone SOD SUCCI 40 MG/ML 1 ML VIAL IV SCH ×3 (09:11→23:31)
[2020-03-09] MEDS: ASPIRIN 81 MG PO SCH (09:11)
[2020-03-09] MEDS: ENOXAPARIN 40 MG/0.4 ML SYRINGE SQ SCH (09:13)
[2020-03-09 11:47] LABS: Glucose,Whole Blood 126 mg/dL (75-99)
--- NOTE | 2020-03-09 12:51 | P.PN ---
Subjective Progress Note Date: 03/09/20 Principal diagnosis: Acute on chronic hypercapnic respiratory failure secondary to an exacerbation of COPD. 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 Patient denied any fever, chills, denied any cough, or phlegm production, no sick contacts, no body aches, no nausea vomiting or diarrhea. Apparently he has been increasingly short of breath over the past couple of days and was unable to ambulate. He was evaluated a [facility] and he was being treated there for acute COPD exacerbation. Patient was found to be more confused and a blood gas was obtained showing PaCO2 of 84% and pH of 7.35. Chest x-ray was obtained once he arrived to [facility] showing curvilinear density projecting over the left upper lung with the possibility of external artifact or a margin of the [place], mild patchy retrocardiac density with some volume loss at the left base and a trace left pleural effusion was difficult to exclude. Patient was started on antibiotics in the form of azithromycin and Rocephin, Procrit Calcitrol level is pending, patient was placed on BiPAP for acute on chronic hypercapnic respiratory failure. His lab work was reviewed showing normal white count of 9.8, hemoglobin of 15.5, neutrophil level of 8.4, lymphopenia of 0.6, sodium 132, patient is receiving gentle IV hydration and plan and was sitting at a 50, chloride is 85, CO2 is 45, B1 is 23, creatinine is 0.61, LFTs were unremarkable, Covid 19 test was negative. Patient is on nebulized bronchodilators, and IV steroids. His BiPAP pressure is 15/5 with FiO2 of 40%, with a target pulse ox of 88-91% The patient is seen today 03/07/2020 in follow-up in the selective care unit. He is currently sitting up in a chair at the bedside. Awake and alert in no acute distress. Breathing a bit easier today compared to yesterday. He is maintaining O2 saturations in the mid 90s on 3 L/m per nasal cannula. He is afebrile. White count 9.5. Hemoglobin 14.7. Sodium 131. Bicarb 41. Creatinine 0.60. He is maintained on ceftriaxone and azithromycin along with bronchodilators, IV Solu-Medrol. He is utilizing the BiPAP during the evening and throughout the day while napping. Settings 15/5 on 40% FiO2. The patient is seen today 03/08/2020 in follow-up on the selective care unit. He is currently resting in bed. A bit more awake and alert today. He is currently on BiPAP 15/5 and 40% FiO2. Alternating with oxygen at 3 L/m per nasal cannula. White count 8.3. Hemoglobin 13.5. Sodium 131. Potassium 4.7. Creatinine 0.56. He remains on Symbicort, Spiriva, albuterol. He is on IV Solu-Medrol. Lovenox for DVT prophylaxis. Antibiotics in the form of ceftriaxone and azithromycin. The patient was seen today in 03/09/2020 in follow-up on the selective care unit. He is currently awake and alert in no acute distress. Breathing easier today compared to yesterday. Maintaining O2 saturations in the 90s on 2 L/m per nasal cannula. His been afebrile. He is in the BiPAP throughout the night. White count 6.3. Hemoglobin 13.7. Sodium 133. Potassium 4.9. Bicarb 37. Creatinine 0.49. He remains on Symbicort, Spiriva, albuterol. Maintained on IV Solu-Medrol. Antibiotics in the form of ceftriaxone and azithromycin. Lovenox for DVT prophylaxis. Objective - Vital Signs Vital signs: Vital Signs Temp 97.8 F 03/09/20 08:20 Pulse 87 03/09/20 11:35 Resp 20 03/09/20 11:35 BP 129/74 03/09/20 11:35 Pulse Ox 95 03/09/20 11:35 Intake & Output 03/08/20 03/09/20 03/09/20 18:59 06:59 18:59 Intake Total 910 300 480 Output Total 1025 700 300 Balance -115 -400 180 Weight 84 kg Intake: Intake, IV Titration 190 300 Amount Sodium Chloride 0.9% 1, 140 300 000 ml @ 50 mls/hr IV . Q20H [facility] Rx#:[id number] cefTRIAXone 1 gm In 50 Sodium Chloride 0.9% 50 ml @ 100 mls/hr IVPB Q24HR [facility] Rx#:[id number] Oral 720 480 Output: Urine 1025 700 300 Other: Voiding Method Toilet Toilet Toilet Urinal Urinal Urinal # Voids 1 - Exam GENERAL EXAM: Awake and alert, pleasant 69-year-old gentleman, on 2 L/m per n mart cannula and alternating with BiPAP support with pressures of 15/5 and FiO2 of 40% comfortable in no apparent distress. HEAD: Normocephalic/atraumatic. EYES: Normal reaction of pupils, equal size. Conjunctiva pink, sclera white. NOSE: Clear with pink turbinates. THROAT: No erythema or exudates. NECK: No masses, no JVD, no thyroid enlargement, no adenopathy. CHEST: No chest wall deformity. Symmetrical expansion. LUNGS: Equal air entry with diminished breath sounds and bilateral end expirat ory wheezing CVS: Regular rate and rhythm, normal S1 and S2, no gallops, no murmurs, no rubs ABDOMEN: Soft, nontender. No hepatosplenomegaly, normal bowel sounds, no guarding or rigidity. EXTREMITIES: No clubbing, no edema, no cyanosis, 2+ pulses and upper and lower extremities. MUSCULOSKELETAL: Muscle strength and tone normal. SPINE: No scoliosis or deformity SKIN: No rashes CENTRAL NERVOUS SYSTEM: No focal deficits, tone is normal in all 4 extremities. PSYCHIATRIC: Alert and oriented -3. Appropriate affect. Intact judgment and insight. - Labs CBC & Chem 7: 03/09/20 06:18 03/09/20 06:18 Labs: Abnormal Lab Results - Last 24 Hours (Table) 03/08/20 03/09/20 03/09/20 Range/Units 20:28 06:12 06:18 Lymphocytes # 0.5 L (1.0-4.8) k/uL Sodium (137-145) mmol/L Chloride (98-107) mmol/L Carbon Dioxide (22-30) mmol/L BUN (9-20) mg/dL Creatinine (0.66-1.25) mg/dL Glucose (74-99) mg/dL POC Glucose (mg/dL) 154 H 130 H (75-99) mg/dL 03/09/20 03/09/20 Range/Units 06:18 11:43 Lymphocytes # (1.0-4.8) k/uL Sodium 133 L (137-145) mmol/L Chloride 90 L (98-107) mmol/L Carbon Dioxide 37 H (22-30) mmol/L BUN 25 H (9-20) mg/dL Creatinine 0.49 L (0.66-1.25) mg/dL Glucose 136 H (74-99) mg/dL POC Glucose (mg/dL) 126 H (75-99) mg/dL Assessment and Plan Assessment: #1. Acute on chronic hypercapnic respiratory failure related to exacerbation of severe COPD, COVID 19 has been ruled out #2. Advanced COPD, with chronic hypercapnic respiratory failure on home BiPAP, not oxygen dependent at baseline, exact pulmonary function is unknown #3. Possibility of left lower lobe pneumonia, patient is covered with combination of Rocephin and azithromycin for possibility of community acquired pneumonia #4. Possible prominent bulla in the left upper lung seen on the chest x-ray on 03/06/2020 #5. Chronic dyspnea related to advanced COPD #6. Mild hyponatremia, possibly related to dehydration #7. Possible left diaphragmatic weakness could be related to previous history of bowel surgery #8. History of diverticulitis, with history of bowel resection Plan: The patient was seen and evaluated by Dr. Knox Continue BiPAP support during the evening and throughout the day as needed Titrate down the FiO2 as tolerated Continue Symbicort, Spiriva, albuterol, IV Solu-Medrol Remains on cefepime and azithromycin Repeat chest x-ray in the a.m. We'll continue to follow I, the cosigning physician, performed a history & physical examination of the patient. Lungs sounds with bilateral end expiratory wheeze, diminished. Maintaining good O2 saturations in the 90s on 2 L/m per nasal cannula, alternating with BiPAP 15/5 on 40% FiO2. I discussed the assessment and plan of care with my nurse practitioner, Lory Mills. I attest to the above note as dictated by her.
[2020-03-09 16:24] LABS: Glucose,Whole Blood 126 mg/dL (75-99)
[2020-03-09] MEDS: SODIUM CHLORIDE 0.9% 1,000 ML IV SCH (20:14)
[2020-03-09 20:25] LABS: Glucose,Whole Blood 140 mg/dL (75-99)
--- NOTE | 2020-03-09 20:42 | P.PN ---
Subjective Progress Note Date: 03/09/20 (delayed charting seen at 1040) Principal diagnosis: shortness of breath Patient is a 69-year-old male with COPD, cpneumonia, sleep apnea, and multiple other comorbid conditions who was transferred from [facility] secondary to worsening dyspnea on hypercapnia. He was diagnosed with acute exacerbation of COPD and acute on chronic hypoxic hypercapnic respiratory failure. He was started on antibiotics, steroids, and BiPAP. Pulmonary was consulted. On the morning of 03/07 he continued to require BiPAP therapy. He had slow progress. He was able to stay off Bipap for most of the day on 03/08. Patient seen and examined at bedside. Feeling much better than yesterday, breathing much improved, no chest pain, no nausea, eating well. States he follows with Dr. Hooker, he isn't pulmonary rehab at baseline. He is feeling well mechanical echo tomorrow. Objective - Vital Signs Vital signs: Vital Signs Temp 98 F 03/09/20 16:45 Pulse 87 03/09/20 16:45 Resp 18 03/09/20 16:55 BP 117/73 03/09/20 16:45 Pulse Ox 93 L 03/09/20 19:42 Intake & Output 03/09/20 03/09/20 03/10/20 06:59 18:59 06:59 Intake Total 300 940 Output Total 700 300 Balance -400 640 Weight 84 kg Intake: Intake, IV Titration 300 Amount Sodium Chloride 0.9% 1, 300 000 ml @ 50 mls/hr IV . Q20H [facility] Rx#:[id number] Oral 940 Output: Urine 700 300 Other: Voiding Method Toilet Toilet Urinal Urinal - Exam General: Nontoxic, No distress, appears at stated age Derm: warm, dry Head: atraumatic, normocephalic, symmetric Eyes: EOMI, no lid lag, anicteric sclera Mouth: no lip lesion, mucus membranes moist Cardiovascular: S1S2 reg, with murmur positive posterior tibial pulse bilateral, Lungs: Course Breath sounds bilateral , no accessory muscle use, 4 word conversational dyspnea Abdominal: soft, nontender to palpation, no guarding, no appreciable organomegaly Ext: no gross muscle atrophy, no edema, no contractures Neuro: CN II-XI grossly intact, no focal neuro deficits Psych: Alert, oriented, appropriate affect - Labs CBC & Chem 7: 03/09/20 06:18 03/09/20 06:18 Labs: Abnormal Lab Results - Last 24 Hours (Table) 03/09/20 03/09/20 03/09/20 Range/Units 06:12 06:18 06:18 Lymphocytes # 0.5 L (1.0-4.8) k/uL Sodium 133 L (137-145) mmol/L Chloride 90 L (98-107) mmol/L Carbon Dioxide 37 H (22-30) mmol/L BUN 25 H (9-20) mg/dL Creatinine 0.49 L (0.66-1.25) mg/dL Glucose 136 H (74-99) mg/dL POC Glucose (mg/dL) 130 H (75-99) mg/dL 03/09/20 03/09/20 03/09/20 Range/Units 11:43 16:16 20:22 Lymphocytes # (1.0-4.8) k/uL Sodium (137-145) mmol/L Chloride (98-107) mmol/L Carbon Dioxide (22-30) mmol/L BUN (9-20) mg/dL Creatinine (0.66-1.25) mg/dL Glucose (74-99) mg/dL POC Glucose (mg/dL) 126 H 126 H 140 H (75-99) mg/dL Assessment and Plan Assessment: Acute exacerbation of COPD due to left-sided pneumonia with acute on chronic hypercapnic respiratory failure -Steroids, bronchodilators, pulmonary hygiene - Zithromax and Rocephin for pneumonia -BiPAP at night -Follow chest x-ray until clear -Pulmonary recommendations appreciated -Covid-19 negative Hyponatremia, mild, improving -Likely secondary to dehydration -Stop IV fluids Constipation, improved - miralax Chronic: Heart murmur Diaphragmatic paralysis Prior CVA DVT prophylaxis: Lovenox Discussed with: patient, nursing Anticipated discharge: In a.m. Anticipated discharge place: home A total of 25 minutes was spent on the care of this complex patient more than 50% of the time was spent in counseling and care coordination.
[2020-03-10] MEDS: ALBUTEROL HFA INHALER INHALATION SCH ×4 (03:33→15:40)
[2020-03-10 06:37] LABS: Glucose,Whole Blood 113 mg/dL (75-99)
[2020-03-10] MEDS: INSULIN ASPART (NovoLOG) 100 UNIT/ML VIAL SQ SCH ×2 (06:43→12:39)
[2020-03-10] MEDS: SYMBICORT 160-4.5 MCG INHALER INHALATION SCH (07:23)
[2020-03-10] MEDS: TIOTROPIUM 18 MCG/PUFF INHALER INHALATION SCH (07:23)
[2020-03-10 08:01] VITALS: BP 125/72; PULSE 91; RESP 16; TEMP 98.6
--- NOTE | 2020-03-10 08:38 | XR ---
EXAMINATION TYPE: XR chest 1V portable DATE OF EXAM: 03/10/2020 COMPARISON: 03/06/2020 HISTORY: Hypoxemia TECHNIQUE: Single frontal view of the chest is obtained. FINDINGS: The curvilinear density overlying the left lung apex on the prior exam is no longer presen t and was external to the patient. The retrocardiac density has slightly improved with improved visua lization of the mid hemidiaphragm and costophrenic angle. Lung volumes have also slightly improved. R ight lung remains well aerated. Cardiomediastinal silhouette is stable. No acute osseous pathology. IMPRESSION: 1. Improved left basilar opacity and trace left pleural effusion. 2. The curvilinear density in the left lung apex on the prior is no longer present and was external t o the patient on the prior exam.
[2020-03-10] MEDS: methylPREDNISolone SOD SUCCI 40 MG/ML 1 ML VIAL IV SCH (10:01)
[2020-03-10] MEDS: ASPIRIN 81 MG PO SCH (10:01)
[2020-03-10] MEDS: AZITHROMYCIN 500 MG TAB PO SCH (10:02)
[2020-03-10] MEDS: ENOXAPARIN 40 MG/0.4 ML SYRINGE SQ SCH (10:03)
[2020-03-10 11:12] LABS: Glucose,Whole Blood 123 mg/dL (75-99)
--- NOTE | 2020-03-10 11:43 | P.PN ---
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 Patient denied any fever, chills, denied any cough, or phlegm production, no sick contacts, no body aches, no nausea vomiting or diarrhea. Apparently he has been increasingly short of breath over the past couple of days and was unable to ambulate. He was evaluated a [facility] and he was being treated there for acute COPD exacerbation. Patient was found to be more confused and a blood gas was obtained showing PaCO2 of 84% and pH of 7.35. Chest x-ray was obtained once he arrived to [facility] showing curvilinear density projecting over the left upper lung with the possibility of external artifact or a margin of the [place], mild patchy retrocardiac density with some volume loss at the left base and a trace left pleural effusion was difficult to exclude. Patient was started on antibiotics in the form of azithromycin and Rocephin, Procrit Calcitrol level is pending, patient was placed on BiPAP for acute on chronic hypercapnic respiratory failure. His lab work was reviewed showing normal white count of 9.8, hemoglobin of 15.5, neutrophil level of 8.4, lymphopenia of 0.6, sodium 132, patient is receiving gentle IV hydration and plan and was sitting at a 50, chloride is 85, CO2 is 45, B1 is 23, creatinine is 0.61, LFTs were unremarkable, Covid 19 test was negative. Patient is on nebulized bronchodilators, and IV steroids. His BiPAP pressure is 15/5 with FiO2 of 40%, with a target pulse ox of 88-91% The patient is seen today 03/07/2020 in follow-up in the selective care unit. He is currently sitting up in a chair at the bedside. Awake and alert in no acute distress. Breathing a bit easier today compared to yesterday. He is maintaining O2 saturations in the mid 90s on 3 L/m per nasal cannula. He is afebrile. White count 9.5. Hemoglobin 14.7. Sodium 131. Bicarb 41. Creatinine 0.60. He is maintained on ceftriaxone and azithromycin along with bronchodilators, IV Solu-Medrol. He is utilizing the BiPAP during the evening and throughout the day while napping. Settings 15/5 on 40% FiO2. The patient is seen today 03/08/2020 in follow-up on the selective care unit. He is currently resting in bed. A bit more awake and alert today. He is currently on BiPAP 15/5 and 40% FiO2. Alternating with oxygen at 3 L/m per nasa l cannula. White count 8.3. Hemoglobin 13.5. Sodium 131. Potassium 4.7. Creatinine 0.56. He remains on Symbicort, Spiriva, albuterol. He is on IV Solu-Medrol. Lovenox for DVT prophylaxis. Antibiotics in the form of ceftriaxone and azithromycin. The patient was seen today in 03/09/2020 in follow-up on the selective care unit. He is currently awake and alert in no acute distress. Breathing easier today compared to yesterday. Maintaining O2 saturations in the 90s on 2 L/m per nasal cannula. His been afebrile. He is in the BiPAP throughout the night. White count 6.3. Hemoglobin 13.7. Sodium 133. Potassium 4.9. Bicarb 37. Creatinine 0.49. He remains on Symbicort, Spiriva, albuterol. Maintained on IV Solu-Medrol. Antibiotics in the form of ceftriaxone and azithromycin. Lovenox for DVT prophylaxis. On 03/10/2020 patient seen in follow-up and general medical floor, he is currently on 2 L of oxygen his pulse ox is 93%, he is calm and comfortable, denies any shortness of breath, his breathing is comfortable, lung sounds are clear, diminished, no rhonchi, no wheezing, he's been treated with a combination of IV steroids, nebulized bronchodilators and antibiotics. Vital signs are stable, he does have a CPAP machine at home, but no oxygen, will obtain home oxygen assessment today, most likely patient will require home oxygen. No new labs today, follow-up chest x-ray was obtained showing improvement basilar opacity and trace left pleural effusion. Objective - Vital Signs Vital signs: Vital Signs Temp 98.6 F 03/10/20 07:00 Pulse 91 03/10/20 07:00 Resp 16 03/10/20 07:00 BP 125/72 03/10/20 07:00 Pulse Ox 93 L 03/10/20 07:00 Intake & Output 03/09/20 03/10/20 03/10/20 18:59 06:59 18:59 Intake Total 940 Output Total 300 475 Balance 640 -475 Weight 81 kg Intake: Oral 940 Output: Urine 300 475 Other: Voiding Method Toilet Toilet Urinal Urinal # Voids 0 - Exam GENERAL EXAM: Alert, very pleasant, 69-year-old white male, 2 L of oxygen with a pulse ox 93% comfortable in no apparent distress. HEAD: Normocephalic/atraumatic. EYES: Normal reaction of pupils, equal size. Conjunctiva pink, sclera white. NOSE: Clear with pink turbinates. THROAT: No erythema or exudates. NECK: No masses, no JVD, no thyroid enlargement, no adenopathy. CHEST: No chest wall deformity. Symmetrical expansion. LUNGS: Equal air entry with no crackles, wheeze, rhonchi or dullness. CVS: Regular rate and rhythm, normal S1 and S2, no gallops, no murmurs, no rubs ABDOMEN: Soft, nontender. No hepatosplenomegaly, normal bowel sounds, no guarding or rigidity. EXTREMITIES: No clubbing, no edema, no cyanosis, 2+ pulses and upper and lower extremities. MUSCULOSKELETAL: Muscle strength and tone normal. SPINE: No scoliosis or deformity SKIN: No rashes CENTRAL NERVOUS SYSTEM: Alert and oriented -3. No focal deficits, tone is normal in all 4 extremities. PSYCHIATRIC: Alert and oriented -3. Appropriate affect. Intact judgment and insight. - Labs CBC & Chem 7: 03/09/20 06:18 03/09/20 06:18 Labs: Abnormal Lab Results - Last 24 Hours (Table) 03/09/20 03/09/20 03/09/20 Range/Units 11:43 16:16 20:22 POC Glucose (mg/dL) 126 H 126 H 140 H (75-99) mg/dL 03/10/20 03/10/20 Range/Units 06:35 11:10 POC Glucose (mg/dL) 113 H 123 H (75-99) mg/dL Assessment and Plan Plan: Assessment: #1. Acute on chronic hypercapnic respiratory failure related to exacerbation of severe COPD, COVID 19 has been ruled out #2. Advanced COPD, with chronic hypercapnic respiratory failure on home BiPAP, not oxygen dependent at baseline, exact pulmonary function is unknown #3. Possibility of left lower lobe pneumonia, patient is covered with combination of Rocephin and azithromycin for possibility of community acquired pneumonia #4. Possible prominent bulla in the left upper lung seen on the chest x-ray on 03/06/2020 #5. Chronic dyspnea related to advanced COPD #6. Mild hyponatremia, possibly related to dehydration #7. Possible left diaphragmatic weakness could be related to previous history of bowel surgery #8. History of diverticulitis, with history of bowel resection Plan: Patient is doing well, obtain home oxygen assessment, patient does have a CPAP/BiPAP machine at home, but no home oxygen, most likely will require home oxygen, patient has been treated with empiric antibiotics, his chest x-rays improving, his breathing easier, from pulmonary perspective patient is stable for discharge home today to finish outpatient course of oral antibiotics, prednisone taper, he can resume his maintenance inhalers. he will need outpatient follow-up With Dr. Knox/Dr. Mills in the office in 7-10 days I performed a history & physical examination of the patient and discussed their management with my nurse practitioner, Sapna Friedman. I reviewed the nurse practitioner's note and agree with the documented findings and plan of care. Lung sounds are positive for diffuse wheezes throughout the lung monsivais. The findings and the impression was discussed with the patient. I attest to the documentation by the nurse practitioner. Time with Patient: Less than 30
--- NOTE | 2020-03-10 19:44 | P.DS ---
Providers Date of admission: 03/06/20 12:00 Expected date of discharge: 03/10/20 Attending physician: Shy Teran Consults: 03/06/20 12:20 Consult Physician Routine Consulting Provider: Fatoumata Knox Consult Reason/Comments: COPD Do you want consulting provider notified?: Yes Primary care physician: New Barragan MD Hospital Course: Discharge Diagnosis: Acute exacerbation of COPD due to left-sided pneumonia with acute on chronic hypercapnic respiratory failure Hyponatremia, mild, improving Constipation, improved Heart murmur Diaphragmatic paralysis Prior CVA Hospital Course: Patient is a 69-year-old male with COPD, cpneumonia, sleep apnea, and multiple other comorbid conditions who was transferred from [facility] secondary to worsening dyspnea on hypercapnia. He was diagnosed with acute exacerbation of COPD and acute on chronic hypoxic hypercapnic respiratory failure. He was started on antibiotics, steroids, and BiPAP. Pulmonary was consulted. On the morning of 03/07 he continued to require BiPAP therapy. He had slow progress. He was able to stay off Bipap for most of the day on 03/08. By 03/09 he was feeling much improved. His breathing was back to baseline. Cough did. She was feeling much stronger. On the morning of 03/10 he felt as though he could manage at home. He was seen by pulmonary and cleared for discharge. He will complete a prolonged prednisone taper, zithromax, and maintain his bronchodilators. He has been cleared to resume pulmonary rehab. He'll follow- up with Lory Herrmann NP and Dr. Barragan. He will require 2 L nasal cannula with ambulation and has been provided a prescription. Patient seen and examined at bedside. Feeling back to baseline. Breathing is much better. Feels as though he can manage at home. All questions answered. He is unclear to resume pulmonary rehab. Vital signs reviewed and stable. General: non toxic, no distress, appears older than stated age, cachectic Derm: warm, dry Head: atraumatic, normocephalic, symmetric Eyes: EOMI, no lid lag, anicteric sclera Mouth: no lip lesion, mucus membranes moist Cardiovascular: S1S2 reg, no murmur, positive posterior tibial pulse bilateral, Lungs: Decreased breath sounds bilaterally with faint wheezing, phlegm accessory muscle use which patient states baseline Abdominal: soft, nontender to palpation, no guarding, no appreciable organomegaly A total of 37 minutes of time were spent preparing this complex discharge summary . Patient Condition at Discharge: Stable Plan - Discharge Summary Discharge Rx Participant: No New Discharge Prescriptions: New predniSONE [Deltasone] 0 mg PO DIRECTED #21 tab Tiotropium 18 Mcg/Puff [Spiriva] 1 puff INHALATION RT-DAILY #1 inhaler Azithromycin [Zithromax] 500 mg PO DAILY #4 tab Continue Fluticasone Nasal [place] [Flonase Nasal [place]] 1 spray NASAL DAILY PRN PRN Reason: Allergy Symptoms Beclomethasone Dipropionate [Qvar 40 mcg Redihaler] 1 inhalation PO RT-BID Albuterol Sulfate [Ventolin HFA] 2 puff PO Q4-6H PRN PRN Reason: Shortness Of Breath Aspirin EC [Ecotrin Low Dose] 81 mg PO DAILY Albuterol Nebulized [Ventolin Nebulized] 2.5 mg INHALATION RT-Q4H PRN PRN Reason: Shortness Of Breath Discontinued predniSONE [Deltasone] 40 mg PO DAILY Multivitamins, Thera [Multivitamin (formulary)] 1 tab PO DAILY Azithromycin [Zithromax] See Taper PO DAILY Discharge Medication List Albuterol Nebulized [Ventolin Nebulized] 2.5 mg INHALATION RT-Q4H PRN 03/06/20 [History] Albuterol Sulfate [Ventolin HFA] 2 puff PO Q4-6H PRN 03/06/20 [History] Aspirin EC [Ecotrin Low Dose] 81 mg PO DAILY 03/06/20 [History] Beclomethasone Dipropionate [Qvar 40 mcg Redihaler] 1 inhalation PO RT-BID 03/06/20 [History] Fluticasone Nasal [place] [Flonase Nasal [place]] 1 spray NASAL DAILY PRN 03/06/20 [History] Azithromycin [Zithromax] 500 mg PO DAILY #4 tab 03/10/20 [Rx] Tiotropium 18 Mcg/Puff [Spiriva] 1 puff INHALATION RT-DAILY #1 inhaler 03/10/20 [Rx] predniSONE [Deltasone] 0 mg PO DIRECTED #21 tab 03/10/20 [Rx] Follow up Appointment(s)/Referral(s): Lory Mills NPC [Nurse Practitioner] - 04/01/20 2:30 pm () New Barragan MD [Primary Care Provider] - 03/18/20 2:00 pm Patient Instructions/Handouts: COPD (Chronic Obstructive Pulmonary Disease) (DC) Activity/Diet/Wound Care/Special Instructions: Patient needs home oxygen at discharge secondary to hypoxia from COPD Home Care - [facility] - [phone] Oxygen - [facility] - Do not resume pulmonary rehab until 03/16 Discharge Disposition: HOME WITH HOME HEALTH SERVICES
== END 2020-03-10 16:23 | disposition home health service (06) | DRG 189 ==
LOC: 3SCARD 12:00 → 4SSUR 03-10 08:00
PROVIDERS: ADMIT Internal Medicine; ATTEND Internal Medicine
PROC: 5A09457 Assistance with Respiratory Ventilation, 24-96 Consecutive Hours, Continuous Positive Airway Pressure (ICD-10-PCS; principal; 2020-03-06)
DX: J96.22 Acute and chronic respiratory failure with hypercapnia (principal); J18.9 Pneumonia, unspecified organism; J44.1 Chronic obstructive pulmonary disease with (acute) exacerbation; E87.1 Hypo-osmolality and hyponatremia; J44.0 Chronic obstructive pulmonary disease with (acute) lower respiratory infection; J96.21 Acute and chronic respiratory failure with hypoxia; E86.0 Dehydration; Z20.828 Contact with and (suspected) exposure to other viral communicable diseases; G47.30 Sleep apnea, unspecified; K59.00 Constipation, unspecified; Z90.49 Acquired absence of other specified parts of digestive tract; Z82.49 Family history of ischemic heart disease and other diseases of the circulatory system; Z79.899 Other long term (current) drug therapy; Z79.82 Long term (current) use of aspirin; Z79.52 Long term (current) use of systemic steroids; Z86.73 Personal history of transient ischemic attack (TIA), and cerebral infarction without residual deficits; Z82.3 Family history of stroke
CPT/HCPCS: 71045; 80048; 80053; 80061; 83036; 83735; 84100; 84145; 85025; 87635; 94640; 94660; 94760